=== PATIENT | male | born 1985 | race Hispanic/Latino ===

== ENCOUNTER → 2016-03-06 | Outpatient (REF) | payer OTHER | LOC: M SFHCLERA 13:26 | PROVIDERS: ATTEND Nurse Practitioner Family | DX: J02.9 Acute pharyngitis, unspecified (principal) ==

== ENCOUNTER → 2016-03-23 | Outpatient (REF) | payer OTHER ==
[2016-03-23 14:18] LABS: CONTROL LINE INT CTR LINE PRESENT; HIV SCRN NEGATIVE (NEGATIVE); HIV SCRN1 NEGATIVE (NEGATIVE)
[2016-03-23 15:03] LABS: HEP C VIRUS AB SCREEN MEDICARE 0.1 INDEX (<0.8)
== END ==
LOC: M SFHCPLAZ 09:58
PROVIDERS: ATTEND Family Medicine
DX: A63.0 Anogenital (venereal) warts (principal)